=== PATIENT | female | born 1985 | race African-American/Black ===

== ENCOUNTER 2019-03-31 23:09 | Inpatient (IN) ==
[2019-03-31] MEDS ORDERED: LORazepam 2 MG/1 ML VIAL IV STA (23:40)
[2019-03-31 23:55] LABS: Basophils % 0.5 % (0.0-0.8); Eosinophils # 0.2 10*3/uL (0.0-0.87); Hematocrit 40.5 VOL% (35.7-47.0); Hemoglobin 13.4 GM/DL (12.0-16.0); Immature Granulocytes % 0.3 %; Immature Granulocytes Absolute 0.03 #; Lymphocytes # 3.3 10*3/uL (1.4-4.0); Lymphocytes % 38.6 % (21.3-54.2); Mean Corpuscular HGB Conc 33.1 GM/DL (32-36); Mean Corpuscular Volume 89.4 FL (87-102); Mean Platelet Volume 10.3 FL (9.6-12.0); Monocytes % 8.2 % (1.7-12.7); Neutrophils % 50.4 % (38.7-73.9); Platelet Count 314 T/CUMM (130-400); Red Blood Count 4.53 MC/CUMM (3.8-5.5); Red Cell Distribution Width 12.8 % (9.3-17.3); White Blood Count 8.6 T/CUMM (4-12)
[2019-04-01] LABS: Alanine Aminotransferase 26 U/L (13-56); Albumin 3.9 G/DL (3.4-5.0); Alkaline Phosphatase 66 U/L (45-117); Aspartate Amino Transferase 16 U/L (0-37); Bilirubin,Total < 0.39 MG/DL (0.2-1.0); Blood Urea Nitrogen 12 MG/DL (7-18); Calcium 9.2 MG/DL (8.5-10.1); Estimated Glom Filtration Rate 120 ML/MIN; Glucose 89 MG/DL (74-106); Osmolality,Calculated 279.3 MOS/KG (273-304); Total Protein 8.4 G/DL (6.4-8.3)
[2019-04-01 00:39] LABS: Barbiturates Screen,Urine Negative (Negative); Benzodiazepines Screen,Urine Negative (Negative); Cannabinoid Screen,Urine Negative (Negative); Opiate Screen,Urine Negative (Negative); Phencyclidine Screen,Urine Negative (Negative)
[2019-04-01] MEDS ORDERED: ACETAMINOPHEN 325 MG TABLET PO PRN (02:15)
[2019-04-01] MEDS ORDERED: ONDANSETRON 4 MG/2 ML VIAL IV PRN (02:15)
[2019-04-01 03:24] LABS: Risk Ratio 5.13; Thyroid Stimulating Hormone 1.55 uIU/ml (0.358-3.74); VLDL CHOLESTEROL 24.6 MG/DL
[2019-04-01 06:05] LABS: Basophils % 0.4 % (0.0-0.8); Eosinophils # 0.1 10*3/uL (0.0-0.87); Eosinophils % 1.3 % (0.00-10.9); Hematocrit 39.7 VOL% (35.7-47.0); Immature Granulocytes % 0.3 %; Immature Granulocytes Absolute 0.02 #; Lymphocytes # 2.8 10*3/uL (1.4-4.0); Lymphocytes % 40.3 % (21.3-54.2); Mean Corpuscular HGB Conc 32.7 GM/DL (32-36); Mean Corpuscular Volume 89.8 FL (87-102); Mean Platelet Volume 10.4 FL (9.6-12.0); Monocytes % 8.6 % (1.7-12.7); Neutrophils % 49.1 % (38.7-73.9); Platelet Count 264 T/CUMM (130-400); Red Blood Count 4.42 MC/CUMM (3.8-5.5); Red Cell Distribution Width 12.9 % (9.3-17.3); White Blood Count 6.9 T/CUMM (4-12)
[2019-04-01 06:21] LABS: Calcium 8.6 MG/DL (8.5-10.1); Osmolality,Calculated 276.4 MOS/KG (273-304)
[2019-04-01] MEDS: ENOXAPARIN 40 MG/0.4 ML SYRINGE SUBCUT SCH (09:23)
[2019-04-01] MEDS: ASPIRIN 325 MG TABLET PO SCH (09:24)
[2019-04-01] MEDS: PANTOPRAZOLE 40 MG TABLET PO SCH (09:24)
[2019-04-01] MEDS ORDERED: LORazepam 2 MG/1 ML VIAL IV PRN (18:38)
[2019-04-01] MEDS: levETIRAcetam 500 MG TABLET PO SCH (21:38)
[2019-04-02] MEDS: ASPIRIN 325 MG TABLET PO SCH (09:47)
[2019-04-02] MEDS: PANTOPRAZOLE 40 MG TABLET PO SCH (09:48)
[2019-04-02] MEDS: levETIRAcetam 500 MG TABLET PO SCH (09:48)
[2019-04-02] MEDS: ENOXAPARIN 40 MG/0.4 ML SYRINGE SUBCUT SCH (10:03)
[2019-04-02] MEDS: SERTRALINE 25 MG TABLET PO SCH (14:29)
[2019-04-03 06:06] LABS: Basophils % 0.5 % (0.0-0.8); Eosinophils # 0.2 10*3/uL (0.0-0.87); Eosinophils % 2.6 % (0.00-10.9); Hematocrit 39.4 VOL% (35.7-47.0); Hemoglobin 12.6 GM/DL (12.0-16.0); Immature Granulocytes % 0.2 %; Immature Granulocytes Absolute 0.01 #; Lymphocytes # 2.7 10*3/uL (1.4-4.0); Lymphocytes % 47.5 % (21.3-54.2); Mean Corpuscular Volume 88.9 FL (87-102); Mean Platelet Volume 9.7 FL (9.6-12.0); Monocytes % 9.1 % (1.7-12.7); Neutrophils % 40.1 % (38.7-73.9); Platelet Count 299 T/CUMM (130-400); Red Blood Count 4.43 MC/CUMM (3.8-5.5); Red Cell Distribution Width 12.7 % (9.3-17.3); White Blood Count 5.7 T/CUMM (4-12)
[2019-04-03 06:30] LABS: Calcium 8.7 MG/DL (8.5-10.1); Osmolality,Calculated 280.1 MOS/KG (273-304)
[2019-04-03] MEDS: ASPIRIN 325 MG TABLET PO SCH (08:21)
[2019-04-03] MEDS: ENOXAPARIN 40 MG/0.4 ML SYRINGE SUBCUT SCH (08:21)
[2019-04-03] MEDS: SERTRALINE 25 MG TABLET PO SCH (08:21)
[2019-04-03] MEDS: PANTOPRAZOLE 40 MG TABLET PO SCH (08:22)
[2019-04-04] MEDS: ASPIRIN 325 MG TABLET PO SCH (09:04)
[2019-04-04] MEDS: ENOXAPARIN 40 MG/0.4 ML SYRINGE SUBCUT SCH (09:04)
[2019-04-04] MEDS: PANTOPRAZOLE 40 MG TABLET PO SCH (09:04)
[2019-04-04] MEDS: SERTRALINE 25 MG TABLET PO SCH (09:05)
[2019-04-04] MEDS: levETIRAcetam 250 MG TABLET PO SCH (20:49)
[2019-04-05] MEDS: SERTRALINE 25 MG TABLET PO SCH (10:13)
[2019-04-05] MEDS: levETIRAcetam 250 MG TABLET PO SCH (10:13)
[2019-04-05] MEDS: ASPIRIN 325 MG TABLET PO SCH (10:13)
[2019-04-05] MEDS: PANTOPRAZOLE 40 MG TABLET PO SCH (10:13)
[2019-04-05] MEDS: ENOXAPARIN 40 MG/0.4 ML SYRINGE SUBCUT SCH (10:14)
[2019-04-05 11:02] VITALS: BP 129/70
== END 2019-04-05 15:15 | disposition home or self-care (01) | DRG 101 ==
LOC: EDUNIT# → EDBD → N.ED 23:09 → N.EDINP 23:09 → N.4E 04-01 03:37 → SUATTDRO 04-03 14:27
PROVIDERS: ADMIT Internal Medicine; ATTEND Internal Medicine Cardiovascular Disease